=== PATIENT | male | born 1945 | race Asian ===

== ENCOUNTER 2023-03-02 07:03 | Inpatient (IN) | payer OTHER, BC ==
[2023-02-25 14:29] LABS: BASOPHILS # (AUTO) 0.1 K/uL (0.0-0.2); BASOPHILS % (AUTO) 0.9 % (0.0-2.0); EOSINOPHILS # (AUTO) 0.1 K/uL (0.0-0.4); EOSINOPHILS % (AUTO) 1.5 % (0.0-4.0); HEMATOCRIT 46.3 % (36-54); HEMOGLOBIN 15.2 g/dL (14.0-18.0); LYMPHOCYTES % (AUTO) 35.3 % (20.5-51.5); MEAN CORPUSCULAR HEMOGLOBIN 32 pg (27-31); MEAN CORPUSCULAR HGB CONC 33 % (32-36); MEAN CORPUSCULAR VOLUME 96 fL (79.0-98.0); MONOCYTES # (AUTO) 0.5 K/uL (0.0-1.0); MONOCYTES % (AUTO) 8.5 % (1.7-9.3); NEUTROPHILS % (AUTO) 53.8 % (40.0-70.0); PLATELET COUNT (AUTO) 160 K/uL (130-430); RED CELL DISTRIBUTION WIDTH 14.1 % (9.0-15.0); WHITE BLOOD COUNT (AUTO) 5.5 K/uL (4.8-10.8)
[2023-02-25 14:45] LABS: PROTHROMBIN TIME 9.9 SECS (9.5-12.5)
[2023-02-25 14:51] LABS: ALANINE AMINOTRANSFERASE 33 U/L (12-78); ALBUMIN 3.7 g/dL (3.4-4.8); ANION GAP 7 (5-15); ASPARTATE AMINOTRANSFERASE 31 U/L (10-37); CALCIUM 8.1 mg/dL (8.4-11.0); CARBON DIOXIDE 31 mmol/L (23-29); CHLORIDE 104 mmol/L (98-107); CREATININE 0.97 mg/dL (0.55-1.30); GLUCOSE 115 mg/dL (74-106); POTASSIUM 3.4 mmol/L (3.5-5.1); SODIUM SERUM 142 mmol/L (136-145); TOTAL BILIRUBIN 0.5 mg/dL (0.0-1.0); UREA NITROGEN, BLOOD 14 mg/dL (8-21)
[~2023-03-02] VITALS: Ht 177.8 cm; Wt 83.9 kg
[~2023-03-02 07:03] MED LIST: ATOR20TA64 PO; CELECOXIB 100 MG CAPSULE PO ONE; GABAPENTIN 300 MG CAPSULE PO ONE; HYDR12.585 PO; LEVO75TA7 PO; OLME40TA70 PO; OXCA600T37 PO; oxyCODONE HCL 10 MG TAB.ER.12H PO ONE
[2023-03-02] MEDS ORDERED: CELECOXIB 100 MG CAPSULE ONE (07:09)
[2023-03-02] MEDS ORDERED: GABAPENTIN 300 MG CAPSULE ONE (07:14)
[2023-03-02] MEDS ORDERED: oxyCODONE HCL 10 MG TAB.ER.12H PO ONE ×2 (07:15→07:17)
[2023-03-02] MEDS ORDERED: CEFAZOLIN SOD 2 GM in D5W 50 ML IV ONE (07:30)
[2023-03-02] MEDS ORDERED: ACETAMINOPHEN I.V. 1000 MG 100 ML IV ONE (10:34)
[2023-03-02] MEDS ORDERED: PROPOFOL 200MG/ 20ML VIAL (DIPRIVAN) IV ONE (10:40)
[2023-03-02] MEDS ORDERED: BUPIVACAINE /PF 0.25% 30 ML VIAL INJ ONE (10:40)
[2023-03-02] MEDS ORDERED: TRANEXAMIC ACID 1,000 MG/10 ML VIAL ONE (10:40)
[2023-03-02] MEDS ORDERED: ROPIVACAINE 40 MG/20 ML AMP EP ONE (10:40)
[2023-03-02] MEDS ORDERED: MEPERIDINE 50 MG/ML VIAL ONE (10:40)
[2023-03-02] MEDS ORDERED: ONDANSETRON HCL 4 MG/2 ML VIAL ONE (10:40)
[2023-03-02] MEDS ORDERED: VANCOMYCIN HCL 1000 MG/VIAL IV ONE (10:40)
[2023-03-02] MEDS ORDERED: SEVOFLURANE 15 MIN GAS INH ONE (10:40)
[2023-03-02] MEDS ORDERED: fentaNYL CITRATE/PF 100 MCG/2 ML AMP ONE (10:40)
[2023-03-02] MEDS ORDERED: WATER FOR IRRIGATION,STERILE 1,000 ML IRRIG.SOLN IR ONE (10:40)
[2023-03-02] MEDS ORDERED: NS IRRIG SOLN 1000 ML IR ONE (10:40)
[2023-03-02] MEDS ORDERED: oxyCODONE HCL 5 MG TABLET PO PRN ×2 (11:00)
[2023-03-02] MEDS ORDERED: traMADol HCL HCL 50 MG TABLET (ULTRAM) PO PRN (11:00)
[2023-03-02] MEDS ORDERED: LORATADINE 10 MG TABLET PO PRN (11:00)
[2023-03-02] MEDS ORDERED: HYDROmorphone 1 MG/ML INJ. CARTRIDGE IVP PRN ×4 (11:00→11:15)
[2023-03-02] MEDS ORDERED: LR 1,000 ML IV SCH (11:15)
[2023-03-02] MEDS ORDERED: METOCLOPRAMIDE HCL 10 MG/2 ML VIAL IVP PRN ×2 (11:15→12:45)
[2023-03-02] MEDS ORDERED: KETOROLAC TROMETHAMINE 30 MG VIAL IVP PRN (11:15)
[2023-03-02] MEDS ORDERED: ceFAZolin SODIUM 2 GM in D5W 50 ML IV SCH (11:15)
[2023-03-02] MEDS ORDERED: MEPERIDINE HCL/PF 25 MG/ML DISP.SYRIN IVP PRN (11:15)
[2023-03-02] MEDS ORDERED: ONDANSETRON HCL 4 MG/2 ML VIAL IVP PRN ×2 (11:15→11:45)
[2023-03-02] MEDS ORDERED: LIP20 PO (11:37)
[2023-03-02] MEDS ORDERED: TOPXL100 PO (11:37)
[2023-03-02] MEDS ORDERED: LOSA-415 PO (11:37)
[2023-03-02] MEDS ORDERED: OXCA600T37 PO (11:37)
[2023-03-02] MEDS ORDERED: FURO-150 PO (11:37)
[2023-03-02] MEDS ORDERED: LEVO75TA7 PO (11:37)
[2023-03-02] MEDS ORDERED: DILT180C67 PO (11:37)
[2023-03-02] MEDS ORDERED: NALOXONE HCL 0.4 MG/ML AMP (NARCAN) IVP PRN ×3 (12:45)
[2023-03-02] MEDS ORDERED: DIPHENHYDRAMINE HCL 25 MG CAPSULE PO PRN (12:45)
[2023-03-02] MEDS ORDERED: LACTULOSE 20 GM/30 ML UDC PO PRN (12:45)
[2023-03-02] MEDS ORDERED: BISACODYL 10 MG/SUPPOSITORY RC PRN (12:45)
[2023-03-02] MEDS: KETOROLAC TROMETHAMINE 10 MG TABLET (TORADOL) PO SCH ×2 (14:00→22:01)
[2023-03-02] MEDS ORDERED: ACETAMINOPHEN 500 MG TABLET PO SCH (14:00)
[2023-03-02 16:00] VITALS: BP_SYST 156; PULSE 78; RESP 18; TEMP 97.6; O2SAT 97
[2023-03-02] MEDS: ceFAZolin SODIUM 2 GM in D5W 50 ML IV SCH ×2 (16:01→22:10)
[2023-03-02] MEDS: ACETAMINOPHEN 500 MG TABLET PO SCH ×2 (16:05→22:01)
[2023-03-02] MEDS: NACL 0.9% 1,000 ML IV SCH (16:05)
[2023-03-02] MEDS ORDERED: ATORVASTATIN 20 MG TABLET PO ONE (16:30)
[2023-03-02] MEDS ORDERED: LEVOTHYROXINE SODIUM 0.075 MG TABLET PO ONE (16:30)
[2023-03-02] MEDS ORDERED: DILTIAZEM HCL 180 MG CAP.SR.24H PO ONE (16:30)
[2023-03-02 16:45] VITALS: BP_SYST 165; PULSE 64; RESP 16; TEMP 97.7; O2SAT 94
[2023-03-02] MEDS ORDERED: HYDROCHLOROTHIAZIDE 12.5 MG CAPSULE (HCTZ) PO ONE (16:45)
[2023-03-02] MEDS ORDERED: FUROSEMIDE 20 MG TABLET PO ONE (16:45)
[2023-03-02 20:00] VITALS: BP_SYST 145; PULSE 66; RESP 18; TEMP 97.5; O2SAT 97; O2SAT 98
[2023-03-02] MEDS: SENNOSIDES/DOCUSATE SODIUM 1 TAB TABLET(SENOKOT-S) PO SCH (22:01)
[2023-03-03] VITALS: BP_SYST 122; PULSE 64; RESP 18; TEMP 97.3; O2SAT 95
[2023-03-03] MEDS: NACL 0.9% 1,000 ML IV SCH ×2 (03:48→09:00)
[2023-03-03] MEDS: ACETAMINOPHEN 500 MG TABLET PO SCH ×2 (06:19→13:44)
[2023-03-03] MEDS: KETOROLAC TROMETHAMINE 10 MG TABLET (TORADOL) PO SCH (06:22)
[2023-03-03] MEDS: ceFAZolin SODIUM 2 GM in D5W 50 ML IV SCH (06:42)
[2023-03-03 07:15] LABS: ALANINE AMINOTRANSFERASE 36 U/L (12-78); ALBUMIN 3.1 g/dL (3.4-4.8); ANION GAP 9 (5-15); ASPARTATE AMINOTRANSFERASE 32 U/L (10-37); CALCIUM 7.6 mg/dL (8.4-11.0); CARBON DIOXIDE 29 mmol/L (23-29); CHLORIDE 98 mmol/L (98-107); CREATININE 1.08 mg/dL (0.55-1.30); GLUCOSE 115 mg/dL (74-106); POTASSIUM 3.1 mmol/L (3.5-5.1); SODIUM SERUM 136 mmol/L (136-145); TOTAL BILIRUBIN 0.7 mg/dL (0.0-1.0); TOTAL PROTEIN, SERUM 5.8 g/dL (6.4-8.3); UREA NITROGEN, BLOOD 14 mg/dL (8-21)
[2023-03-03 07:48] LABS: HEMATOCRIT 40.9 % (36-54); HEMOGLOBIN 13.4 g/dL (14.0-18.0)
[2023-03-03 08:00] VITALS: BP_SYST 115; PULSE 59; RESP 17; TEMP 97.6; O2SAT 92
[2023-03-03] MEDS ORDERED: METOPROLOL SUCCINATE 50 MG TAB.SR.24H (TOPROL XL) PO SCH (09:00)
[2023-03-03] MEDS ORDERED: DILTIAZEM HCL 180 MG CAP.SR.24H PO SCH (09:00)
[2023-03-03] MEDS ORDERED: ATORVASTATIN 20 MG TABLET PO SCH (09:00)
[2023-03-03] MEDS ORDERED: OXCARBAZEPINE 600 MG PO SCH (09:00)
[2023-03-03] MEDS ORDERED: ASPIRIN 81 MG TAB.CHEW PO SCH (09:00)
[2023-03-03] MEDS ORDERED: HYDROCHLOROTHIAZIDE 12.5 MG CAPSULE (HCTZ) PO SCH (09:00)
[2023-03-03] MEDS ORDERED: FUROSEMIDE 20 MG TABLET PO SCH (09:00)
[2023-03-03] MEDS ORDERED: OLMESARTAN MEDOXOMIL 20 MG TABLET PO SCH (09:00)
[2023-03-03] MEDS ORDERED: LOSARTAN POTASSIUM PO SCH (09:00)
[2023-03-03] MEDS ORDERED: LOSARTAN POTASSIUM 50 MG TABLET (COZAAR) PO SCH (09:00)
[2023-03-03] MEDS ORDERED: POTASSIUM CHLORIDE 20 MEQ/PKT PACKET PO ONE (09:45)
[2023-03-03] MEDS: SENNOSIDES/DOCUSATE SODIUM 1 TAB TABLET(SENOKOT-S) PO SCH (10:39)
[2023-03-03 11:24] VITALS: O2SAT 92
[2023-03-03] MEDS ORDERED: CELECOXIB 200 MG CAPSULE PO SCH (14:00)
[2023-03-03 16:00] VITALS: BP_SYST 138; PULSE 71; RESP 17; TEMP 99; O2SAT 93
[2023-03-03 16:36] VITALS: BP_SYST 139; PULSE 74; RESP 17; TEMP 99; O2SAT 92
[2023-03-03 17:21] VITALS: BP_SYST 125; PULSE 61; RESP 17; TEMP 98.7; O2SAT 93
== END 2023-03-03 17:12 | disposition home health service (06) | DRG 470 ==
LOC: SMU 07:03
PROVIDERS: ADMIT Orthopaedic Surgery Sports Medicine; ATTEND Orthopaedic Surgery Sports Medicine
PROC: 0SRD0J9 Replacement of Left Knee Joint with Synthetic Substitute, Cemented, Open Approach (ICD-10-PCS; principal; 2023-03-02 10:41)
DX: M17.12 Unilateral primary osteoarthritis, left knee (principal)
CPT/HCPCS: 36415; 71046-TC; 73560-TC; 80053; 83051; 85014; 85025; 85610-TC; 85730-TC; 87081; 88305; 88311; 96379; 97110-GP; 97530-GP; J0131; J0690; J1885; J2175; J2405; J2704; J2795; J3010; J3370; J3490; J7060